=== PATIENT | female | born 1990 | race Caucasian/White ===

== ENCOUNTER 2016-09-29 | Emergency (ER) | payer OTHER ==
--- NOTE | 2016-09-29 17:49 | ED ---
General Adult HPI - General Chief complaint: Upper Respiratory Infection Stated complaint: sinus, flank pain, both sides, vaginal bleeding Time Seen by Provider: 09/29/16 17:23 Source: patient, family, RN notes reviewed Mode of arrival: ambulatory Limitations: no limitations - History of Present Illness Initial comments: Chief complaint history of present illness a 25-year-old female who reports for 3 she's had upper respiratory tract infection. Mild sore throat runny nose sinus pressure productive cough, green to brown. - Related Data Previous Rx's Medication Instructions Recorded Azithromycin [Zithromax Z-pack] 250 mg PO DIRECTED #6 tab 09/29/16 Allergies Allergy/AdvReac Type Severity Reaction Status Date / Time Penicillins Allergy Itching Verified 09/29/16 17:13 Review of Systems ROS Statement: Those systems with pertinent positive or pertinent negative responses have been documented in the HPI. Review of systems. Mild headache no visual acuity changes no earache minimal sore throat with coughing. No neck pain no meningismus. No chest pain shortness of breath other than when coughing. Duct of green to brown colored phlegm. Nausea vomiting once. No diarrhea. Otherwise no abdominal pain or neuro deficits. All systems were otherwise reviewed. Past medical problems significant for seizure disorder quit taking medications or she was 13 she had one seizure approximately one year ago. Has not followed up with family physician she does not drive cars. Patient strongly advised to follow-up with her family physician if she does not have one she'll be given the name of one on discharge today. Patient's denying other medical problems. Her surgeries include tonsils, adenoids, 3 C-sections. And eye surgery for lazy eye. Family history no cancers. Patient reports she has ALLERGIES to penicillin which when she was a child she had a rash. She does smoke strongly encouraged stop spent one 3 minutes talking about stopping smoking. She had alcohol socially. ROS Other: All systems not noted in ROS Statement are negative. Past Medical History Past Medical History: Seizure Disorder History of Any Multi-Drug Resistant Organisms: MRSA Past Surgical History: Adenoidectomy, Section, Tonsillectomy Additional Past Surgical History / Comment(s): eye Past Psychological History: No Psychological Hx Reported Smoking Status: Current every day smoker Past Alcohol Use History: None Reported Past Drug Use History: None Reported General Exam - General Exam Comments Initial Comments: General: The patient is awake and alert, complains of productive cough nausea vomiting today. Vital signs temperature 90.1 pulse 110 respiratory rate 18 pulse ox on percent room air blood pressure 1 3/63. Eye: Pupils are equal, round and reactive to light, extra-ocular movements are intact ; there is normal conjunctiva bilaterally. No signs of icterus. Ears, nose, mouth and throat: There are moist mucous membranes and no oral lesions. Neck: The neck is supple, there is no tenderness , no anterior cervical lymphadenopathy. No stiff neck no meningismus. Cardiovascular: Tachycardic heart rate, 110. No murmur, rub or gallop is appreciated. Respiratory: Lungs are clear to auscultation, respirations are non-labored, breath sounds are equal. No wheezes, stridor, rales, or rhonchi. Productive cough. Gastrointestinal: Soft, non-distended, non-tender abdomen without masses or organomegaly noted. There is no rebound or guarding present. No CVA tenderness. Bowel sounds are unremarkable. Nausea vomiting several times today. Back: There is no tenderness to palpation in the midline. There is no obvious deformity. Musculoskeletal: Normal ROM, no tenderness, There is no pedal edema. There is no calf tenderness or swelling. Sensation intact. Pulses equal bilaterally 2+. Neurological: Denies any neurological deficits none noted. Skin: Skin is warm and dry and no rashes or lesions are noted. Limitations: no limitations Course Vital Signs 09/29/16 17:13 Temperature 98.1 F Pulse Rate 110 H Respiratory 18 Rate Blood Pressure 103/63 O2 Sat by Pulse 100 Oximetry Medical Decision Making - Medical Decision Making The patient was advised to use Tylenol for discomfort. Stop smoking entirely and as soon as possible. Take Z-Meño as directed. Increase fluids and Tylenol for pain Disposition Clinical Impression: Upper respiratory tract infection Disposition: HOME SELF-CARE Condition: Fair Instructions: Upper Respiratory Infection (ED) Additional Instructions: Increase fluids, use Tylenol for discomfort. Take Z-Meño until completed. Follow-up with on-call physician Dr. Piedra Prescriptions: Azithromycin [Zithromax Z-pack] 250 mg PO DIRECTED #6 tab Time of Disposition: 17:49
== END 2016-09-29 18:41 | disposition home or self-care (01) ==
CPT/HCPCS: 99282

== ENCOUNTER 2017-03-02 22:15 | Emergency (ER) | payer OTHER ==
[2017-03-02 22:26] VITALS: BP 109/78; PULSE 87; RESP 18; TEMP 97.8
--- NOTE | 2017-03-02 22:31 | ED ---
Extremity Problem HPI - General Stated complaint: L foot injury Time Seen by Provider: 03/02/17 22:17 Source: patient Mode of arrival: ambulatory Limitations: no limitations - Related Data Home Medications Medication Instructions Recorded Confirmed Acetaminophen Tab [Tylenol Tab] 650 mg PO Q4H PRN 09/29/16 09/29/16 Previous Rx's Medication Instructions Recorded Azithromycin [Zithromax Z-pack] 250 mg PO DIRECTED #6 tab 09/29/16 Acetaminophen-Codeine 300-30mg 1 tab PO Q6H PRN #10 tablet 03/02/17 [Tylenol #3] Ibuprofen [Motrin] 600 mg PO Q6HR PRN #20 tab 03/02/17 Allergies Allergy/AdvReac Type Severity Reaction Status Date / Time Penicillins Allergy Rash/Hives Verified 03/02/17 22:28 Review of Systems ROS Statement: Those systems with pertinent positive or pertinent negative responses have been documented in the HPI. ROS Other: All systems not noted in ROS Statement are negative. Past Medical History Past Medical History: Seizure Disorder History of Any Multi-Drug Resistant Organisms: MRSA Past Surgical History: Adenoidectomy, Section, Tonsillectomy Additional Past Surgical History / Comment(s): eye Past Psychological History: No Psychological Hx Reported Smoking Status: Current every day smoker Past Alcohol Use History: None Reported Past Drug Use History: None Reported General Exam - General Exam Comments Initial Comments: 26 year old female, no distress. Limitations: no limitations General appearance: alert, in no apparent distress Head exam: Present: atraumatic, normocephalic, normal inspection Eye exam: Present: normal appearance, PERRL, EOMI. Absent: scleral icterus, conjunctival injection, periorbital swelling ENT exam: Present: normal exam, mucous membranes moist Neck exam: Present: normal inspection. Absent: tenderness, meningismus, lymphadenopathy Respiratory exam: Present: normal lung sounds bilaterally. Absent: respiratory distress, wheezes, rales, rhonchi, stridor Cardiovascular Exam: Present: regular rate, normal rhythm, normal heart sounds. Absent: systolic murmur, diastolic murmur, rubs, gallop, clicks GI/Abdominal exam: Present: soft, normal bowel sounds. Absent: distended, tenderness, guarding, rebound, rigid Extremities exam: Present: normal inspection, full ROM, normal capillary refill. Absent: tenderness, pedal edema, joint swelling, calf tenderness Back exam: Present: normal inspection, full ROM Neurological exam: Present: alert, oriented X3, CN II-XII intact Psychiatric exam: Present: normal affect, normal mood Skin exam: Present: warm, dry, intact, normal color. Absent: rash Course Vital Signs 03/02/17 22:21 Temperature 97.8 F Pulse Rate 87 Respiratory 18 Rate Blood Pressure 109/78 O2 Sat by Pulse 98 Oximetry Disposition Clinical Impression: Sprain of left foot Disposition: HOME SELF-CARE Condition: Good Instructions: Foot Sprain (ED) Additional Instructions: Mess rest, ice, elevate extremity. Wear the Dejuan wrap and follow-up with orthopedic physician. Return to the emergency department if any alarming signs or symptoms occur. Prescriptions: Acetaminophen-Codeine 300-30mg [Tylenol #3] 1 tab PO Q6H PRN #10 tablet PRN Reason: Pain Ibuprofen [Motrin] 600 mg PO Q6HR PRN #20 tab PRN Reason: Pain Referrals: David Sanchez MD [STAFF PHYSICIAN] - 1-2 days Time of Disposition: 22:54
--- NOTE | 2017-03-02 23:50 | XR ---
Exam: XR LEFT FOOT History: Pain. Distal foot pain. Comparison: None provided. Technique: 3 views. Findings: There is a small oval radiodensity distal to the fibula on frontal view. It probably represents an ossicle or sequela of remote trauma as it appears to be well-corticated. It measures 6 mm otherwise, no evidence for acute displaced fracture or dislocation identified. No significant arthritic or erosive changes. No soft tissue calcifications. Impression: No acute displaced fracture or dislocation.
== END 2017-03-02 23:09 | disposition home or self-care (01) ==
LOC: EC 22:15
DX: S93.602A Unspecified sprain of left foot, initial encounter (principal); F17.200 Nicotine dependence, unspecified, uncomplicated; Z88.0 Allergy status to penicillin; W18.42XA Slipping, tripping and stumbling without falling due to stepping into hole or opening, initial encounter; Y92.096 Garden or yard of other non-institutional residence as the place of occurrence of the external cause
CPT/HCPCS: 99283

== ENCOUNTER 2017-12-09 23:12 | Emergency (ER) | payer OTHER ==
[2017-12-09 23:25] VITALS: RESP 18
[2017-12-09] MEDS ORDERED: ACET/COD 300 MG/30 MG STARTER PACK 6 TAB BTL PO STA (23:59)
--- NOTE | 2017-12-10 01:08 | XR ---
EXAMINATION TYPE: XR ankle complete RT DATE OF EXAM: 12/10/2017 COMPARISON: NONE HISTORY: Ankle injury TECHNIQUE: 3 views FINDINGS: There is soft tissue swelling around the ankle joint. There is 1 cm bony density at the dis salome fibula that could be an old ununited chip fracture of the distal fibula. There is no dislocation. Ankle mortise is anatomic. IMPRESSION: Possible old ununited fracture of the distal fibula. No acute fracture seen. Soft tissue swelling.
[2017-12-10 01:13] VITALS: BP 112/71; PULSE 78; TEMP 97.8
--- NOTE | 2017-12-10 01:35 | ED ---
Lower Extremity Injury HPI - General Chief Complaint: Extremity Injury, Lower Stated Complaint: Dental Pain, ankle injury Time Seen by Provider: 12/09/17 23:36 Source: patient, RN notes reviewed, old records reviewed Mode of arrival: ambulatory Limitations: no limitations - History of Present Illness Initial Comments: This patient is a 27 year old female with CC of dental pain in her right upper teeth as well as right ankle pain. She reports she tripped down tommie stairs 2 days ago, and has had ankle pain and swelling. Patient also reports that she has multiple dental carries and broken teeth. Denies fevers, chills, and facial swelling. - Related Data Home Medications Medication Instructions Recorded Confirmed Acetaminophen Tab [Tylenol Tab] 650 mg PO Q4H PRN 09/29/16 09/29/16 Previous Rx's Medication Instructions Recorded Azithromycin [Zithromax Z-pack] 250 mg PO DIRECTED #6 tab 09/29/16 Acetaminophen-Codeine 300-30mg 1 tab PO Q6H PRN #10 tablet 03/02/17 [Tylenol #3] Ibuprofen [Motrin] 600 mg PO Q6HR PRN #20 tab 03/02/17 Acetaminophen-Codeine 300-30mg 1 tab PO Q6H PRN #15 tablet 12/10/17 [Tylenol #3] Clindamycin [Cleocin] 450 mg PO TID 7 Days capsule 12/10/17 Allergies Allergy/AdvReac Type Severity Reaction Status Date / Time Penicillins Allergy Rash/Hives Verified 12/09/17 23:24 Review of Systems ROS Statement: Those systems with pertinent positive or pertinent negative responses have been documented in the HPI. ROS Other: All systems not noted in ROS Statement are negative. Past Medical History Past Medical History: Seizure Disorder History of Any Multi-Drug Resistant Organisms: MRSA Date of last positivie culture/infection: 2015/skin Past Surgical History: Adenoidectomy, Section, Ear Surgery, Tonsillectomy Additional Past Surgical History / Comment(s): eye Past Psychological History: No Psychological Hx Reported Smoking Status: Light tobacco smoker Past Alcohol Use History: Occasional Past Drug Use History: Marijuana General Exam - General Exam Comments Initial Comments: This is a 27 year old female, no distress. Limitations: no limitations General appearance: alert, in no apparent distress Head exam: Present: atraumatic, normocephalic, normal inspection Eye exam: Present: normal appearance, PERRL, EOMI. Absent: scleral icterus, conjunctival injection, periorbital swelling ENT exam: Present: normal exam, mucous membranes moist. Absent: normal oropharynx (Poor dentition, has multiple broken teeth. ) Neck exam: Present: normal inspection. Absent: tenderness, meningismus, lymphadenopathy Respiratory exam: Present: normal lung sounds bilaterally. Absent: respiratory distress, wheezes, rales, rhonchi, stridor GI/Abdominal exam: Present: soft, normal bowel sounds. Absent: distended, tenderness, guarding, rebound, rigid Extremities exam: Present: normal inspection, full ROM, normal capillary refill , other (Right ankle swelling, adn pain. Patient has tenderness over lateral malleuolus. ). Absent: tenderness, pedal edema, joint swelling, calf tenderness Back exam: Present: normal inspection Neurological exam: Present: alert, oriented X3, CN II-XII intact Psychiatric exam: Present: normal affect, normal mood Skin exam: Present: warm, dry, intact, normal color. Absent: rash Course Vital Signs 12/09/17 12/10/17 23:20 01:13 Temperature 97.4 F L 97.8 F Pulse Rate 96 78 Respiratory 18 18 Rate Blood Pressure 102/71 112/71 O2 Sat by Pulse 99 100 Oximetry Procedures - Orthopedic Splinting/Casting Injury #1 Side: right Lower Extremity Injury Location: ankle Lower Extremity Immobilizer: posterior splint Other Orthopedic Equipment: crutches Medical Decision Making - Medical Decision Making 27 year old femael wtih right upper dental pain. She has evidecne of multiple broken teeth and dental carries. She has right ankle pain and swelling as well after twisting ankle 2 days ago. She will be treated for what appears to be early dental absces with antibiotics. Xray of foot and ankle completed. Xray shows evidence of old fracture. PAtient foot and ankle was placed in a posterior splint as she is tender over this site. Discussed ortho follow up. All questions answered. - Radiology Data Radiology results: report reviewed possible old ununiteid fracture of the distal fibula. No acute fracture noted. Soft tissue swelling. Disposition Clinical Impression: Right ankle sprain, Ankle fracture, Pain, dental Disposition: HOME SELF-CARE Condition: Good Instructions: Ankle Fracture (ED), Toothache (ED) Additional Instructions: Follow up with orthopedic. Remain in the splint. Patient also follow-up with dental clinic. [facility] [address] [place] [address] [phone] (existing clients only) For new clients: [phone] 1st consult: $50 (includes Xrays) Usually 30% less then private dentist for visits after. [employer] Have to pay $50 for Xrays anmd rest is covered. [phone] Prescriptions: Acetaminophen-Codeine 300-30mg [Tylenol #3] 1 tab PO Q6H PRN #15 tablet PRN Reason: Pain Clindamycin [Cleocin] 450 mg PO TID 7 Days capsule Referrals: None,Stated [Primary Care Provider] - 1-2 days Jovan Cervantes MD [STAFF PHYSICIAN] - 1-2 days Time of Disposition: 01:32
--- NOTE | 2017-12-13 05:35 | CDI ---
Documentation Clarification OP Dear ADRIANNA Wills: Please do addendum to ED report for HPI , Physical exam and MDM. Thank you, Leilani Lu [employer] If you have any question, Please contact adult basic education manager at [phone] [facility]
== END 2017-12-10 01:51 | disposition home or self-care (01) ==
LOC: EC 23:12
DX: S93.401A Sprain of unspecified ligament of right ankle, initial encounter (principal); S82.831G Other fracture of upper and lower end of right fibula, subsequent encounter for closed fracture with delayed healing; K08.89 Other specified disorders of teeth and supporting structures; F17.200 Nicotine dependence, unspecified, uncomplicated; Z86.14 Personal history of Methicillin resistant Staphylococcus aureus infection; Z88.0 Allergy status to penicillin; X50.1XXA Overexertion from prolonged static or awkward postures, initial encounter
CPT/HCPCS: 29515; 99284

== ENCOUNTER → 2021-12-14 | Outpatient (CLI) | payer OTHER ==
[2021-12-14 14:03] VITALS: BP 131/75; PULSE 99; RESP 18; TEMP 98.7
--- NOTE | 2021-12-14 14:07 | P.CON ---
Consult Note - . Consult date: 12/14/21 Assessment/Plan:: HISTORY OF PRESENT ILLNESS: 31 yr old female as a referral from Dr Kennedy presents today with neck pain secondary to noise & positioning for evaluation. Pt states she has cervical pain in the base of her head, 6/ 10 in intensity, sharp, stabbing and throbbing in character with radiation of pain up the scalp bilaterally. Pt admits to having injections for this condition when she was 18 yrs old which was beneficial in reducing the pain. Pain is provoked with extension of the head and noises. Pain is relieved with Aleve OTC, heat, laying supine in a dark/ quiet room and rest. Past Medical History: Seizure Disorder Past Surgical History: Adenoidectomy, Section, Ear Surgery, Tonsillectomy, BL Strabismus Surgery Social History: Tobacco user, Occassional ETOH use, Cannabis use. Family History: All: PCN Meds: See list REVIEW OF ORGAN SYSTEMS: CONSTITUTIONAL: No fevers or chills. No recent weight loss. HEENT: No visual acuity loss, eye pain, difficulties with hearing. No nosebleeds. No difficulty swallowing. RESPIRATORY: Denies any troubles with breathing or dyspnea on exertion. CARDIOVASCULAR: Denies any chest pain, palpitations, or recent heart attacks. GASTROINTESTINAL: Denies fatty food intolerance. Has change in bowel habits and gas bloat. GENITOURINARY: Denies any blood in urine. Has increased urinary frequency. NEUROLOGICAL: + numbness and tingling along the distal extremities. No seizure disorders or headaches. MUSCULOSKELETAL: + back pain SKIN: No skin cancer. No rash. PSYCHIATRIC: Denies current depression or suicidal thoughts. ENDOCRINE: Denies current thyroid disorders. Denies any blood sugar glucose intolerance. HEME/LYMPHATIC: Denies any lumps and bumps around the neck. History of deep venous thrombosis. ALLERGY/IMMUNOLOGY: No immunoglobulin therapy. No immune deficiencies. BREAST: Denies current breast lumps, pain or nipple discharge. Physical Examinations : Constitutional : Cooperative , not in acute distress . HEENT: Neck supple. No Lymphadenopathy. Normal thyroid size . Eyes no ptosis , no icterus, no photophobia . Hearing intact. Normal oropharynx. No Thrush. Respiratory : Chest clear to auscultations bilaterally. No wheezing. No rhonchi. Cardiovascular : Regular rate and rhythm , S1 / S2. No S3 . No S4. Gastrointestinal : Abdomen soft. No tenderness. Bowel sounds x 4. No organomegaly . Genitourinary : Deferred. Neurologic : Cranial nerve II to XII intact. No focal neurological deficits. Psychiatric : alert & oriented x 3. Matching mood & appropriate affect. Judgment & insight intact. Lymphatic No Lymphadenopathy. Musculoskeletal : Cervical Spine Tenderness over G.O.N. bilaterally with jump reflex Motor strength in the deltoid and biceps: Normal right side. Normal Left side Motor strength biceps and the wrist extensors: Normal right side . Normal left side Motor strength in the triceps muscle: Normal right side. Normal left side Deep tendon reflexes: Normal at the biceps. Normal at Brachioradialis. Normal at triceps Cervical facet loading test: positive bilaterally Spurling test: positive bilaterally Neck distraction test: positive bilaterally Kae sign: positive bilaterally Lumbar spine Motor strength lower extremities ,thigh and legs 5/5 Right side , 5/5 Left side Deep tendon reflexes : Normal Knee Jerk. Normal Ankle Jerk Vertebral body tenderness over Lumbar facet Loading Test: positive Right / positive Left Range of motion of the lumbar spine Flexion 30 degrees, extension 10 degrees Straight Leg Raise test: Left/ Right positive at degree Marina test: positive right / positive left. Severe tenderness over the Sacroiliac joint on the Right / Left sides Gaenslen test: positive bilaterally Seated flexion test: positive bilaterally. Imaging: MRI of the brain without contrast from 10/19/21 reviewedl Assessment/ Plan : Recommendation of BL O.N. injections. May need a series of injections to obtain optimal pain relief. Risks, benefits of procedure discussed and patient verbalized understanding. Denies aspirin or anti- coagulant use. Denies medical history of diabetes. All questions answered. I have spent greater than 50 minutes on patient care today. Dr Moore was available by phone for the evaluation of this patient. The time was used to review the medical records including relevant urine studies and Prescription history (MAPs), review of the available imaging, evaluation and examination of the patient, coordination of care with the medical staff and if applicable referring physicians, as well as creation of the medical record PQRS Measure Charge Sheet Mode of Arrival: Ambulatory - Pain Location Neck Non-Pharmacological Interventions: Heat, Inactivity, Position/Reposition Pharmacological Interventions: PRN Medication PQRS Narrative: Smoking Status Light tobacco smoker Blood Pressure 131/75 Pain Intensity [Neck] 6 Scale Used Numeric (1 - 10) Hx Alcohol Use (MH) No Home Medications: Ambulatory Orders Acetaminophen Tab [Tylenol Tab] 650 mg PO Q4H PRN 09/29/16 Azithromycin [Zithromax Z-pack (6 tabs)] 250 mg PO DIRECTED #6 tab 09/29/16 Acetaminophen-Codeine 300-30mg [Tylenol #3] 1 tab PO Q6H PRN #10 tablet 03/02/17 Ibuprofen [Motrin] 600 mg PO Q6HR PRN #20 tab 03/02/17 Acetaminophen-Codeine 300-30mg [Tylenol #3] 1 tab PO Q6H PRN #15 tablet 12/10/17 Clindamycin [Cleocin] 450 mg PO TID 7 Days capsule 12/10/17
== END ==
LOC: PNWHC3 13:08
PROVIDERS: ATTEND Specialist
DX: M54.81 Occipital neuralgia (principal); G40.909 Epilepsy, unspecified, not intractable, without status epilepticus; F17.290 Nicotine dependence, other tobacco product, uncomplicated; Z88.0 Allergy status to penicillin
CPT/HCPCS: 99211